=== PATIENT | male | born 1955 | race Caucasian/White ===

== ENCOUNTER 2022-09-27 09:53 | Emergency (ER) | payer MEDICARE, OTHER ==
[~2022-09-27] VITALS: Ht 167.6 cm; Wt 102.1 kg
[2022-09-27] MEDS ORDERED: ADENOSINE 6 MG/2 ML VIAL IVP ONE (10:00)
[2022-09-27] MEDS ORDERED: ADENOSINE 6 MG/2 ML VIAL ONE ×2 (10:00→10:17)
--- NOTE | 2022-09-27 10:00 | NUR ---
Pt prepped for pharmacological intervention/conversion/adenosine. Both pt and family aware of plan. Verbally consents
--- NOTE | 2022-09-27 10:15 | NUR ---
Pt in NSR- Confirmed per EKG. VSS. DENIES any chest pain. states "dont palpitate anymore"
[2022-09-27 10:39] LABS: CALCIUM, SERUM 8.5 mg/dL (8.5-10.1); CARBON DIOXIDE 26 mmol/L (21-32); CHLORIDE 99 mmol/L (98-107); GLUCOSE 176 mg/dL (74-106); POTASSIUM 4.2 mmol/L (3.5-5.1); SODIUM SERUM 136 mmol/L (136-145); UREA NITROGEN, BLOOD 16 mg/dL (7-18)
--- NOTE | 2022-09-27 10:39 | NUR ---
[facility] CALLED CREDIT FRONT OFFICE DEVELOPER PAGED.
--- NOTE | 2022-09-27 11:00 | NUR ---
Atif lorenzo in [facility] - 09/27/22 at 1229 by KAYLA Status quo. Awiting test results. Reclining in [facility] NO obvious distress NO acute changes
--- NOTE | 2022-09-27 11:00 | NUR ---
Status quo. Awaiting test results. Reclining in [facility] NO obvious distress NO acute changes. Remains on NSR
[2022-09-27 11:16] LABS: BASOPHILS % (AUTO) 0.2 % (0.0-2.0); EOSINOPHILS % (AUTO) 0.5 % (0.0-6.0); HEMATOCRIT 43 % (39-51); HEMOGLOBIN 14.5 g/dL (13.5-17.5); LYMPHOCYTES # (AUTO) 1.2 K/uL (0.8-4.8); LYMPHOCYTES % (AUTO) 20.1 % (20.0-44.0); MEAN CORPUSCULAR HGB CONC 33 g/dl (31.0-36.0); MEAN CORPUSCULAR VOLUME 90 fL (80-96); MONOCYTES # (AUTO) 0.5 K/uL (0.1-1.30); MONOCYTES % (AUTO) 8.9 % (2.0-12.0); NEUTROPHILS % (AUTO) 70.3 % (43.0-81.0); PLATELET COUNT (AUTO) 260 K/uL (150-450); RED BLOOD CELL COUNT(AUTO) 4.81 MIL/uL (4.5-6.0); WHITE BLOOD COUNT (AUTO) 5.7 K/uL (4.3-11.0)
[2022-09-27 12:22] VITALS: BP 132/70
--- NOTE | 2022-09-27 12:23 | NUR ---
Patient discharged to home in stable condition. Written and verbal after care instructions given. Patient verbalizes understanding of instruction.
== END 2022-09-27 12:29 | disposition home or self-care (01) ==
LOC: ER 09:54
DX: I47.1 Supraventricular tachycardia (principal); R00.2 Palpitations; I10 Essential (primary) hypertension
CPT/HCPCS: 99285; 71045; 93005 ×2; 85025; 80048; 36415; 84484; J0153 ×2; J7030